=== PATIENT | female | born 1975 | race Caucasian/White ===

== ENCOUNTER → 2024-06-06 14:09 | Outpatient (REF) | payer OTHER, SELFPAY | LOC: HWWDC 14:09 | PROVIDERS: ATTENDING PHYSICIAN Obstetrics & Gynecology Gynecology; FAMILY PHYSICIAN Student in an Organized Health Care Education/Training Program | DX: Z12.31 Encounter for screening mammogram for malignant neoplasm of breast (principal) | CPT/HCPCS: 77063; 77067 ==